=== PATIENT | male | born 1970 | race Caucasian/White ===

== ENCOUNTER 2016-12-09 08:58 | Emergency (ER) | payer MEDICAID, OTHER ==
[~2016-12-09] VITALS: Ht 208.3 cm; Wt 254.0 kg
[2016-12-09 09:01] VITALS: BP 147/90; PULSE 94; RESP 16; TEMP 98.4; O2SAT 98
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
[2016-12-09] MEDS ORDERED: CIPR-9 PO (12:45)
[2016-12-09] MEDS ORDERED: MAPA500T13 PO (12:45)
[2016-12-09] MEDS ORDERED: IBUP-232 PO (12:45)
[2016-12-09 12:47] VITALS: BP 138/72
[2016-12-09] MEDS ORDERED: HYDR-3533 PO (13:04)
== END 2016-12-09 13:21 | disposition home or self-care (01) ==
LOC: NEPC 08:58
DX: S02.92XA Unspecified fracture of facial bones, initial encounter for closed fracture (principal); S06.0X9A Concussion with loss of consciousness of unspecified duration, initial encounter; Y04.0XXA Assault by unarmed brawl or fight, initial encounter
CPT/HCPCS: 99284